=== PATIENT | female | born 1995 | race Caucasian/White ===

== ENCOUNTER → 2021-04-13 14:55 | Outpatient (BNVA) | payer MEDICAID, SELFPAY | PROVIDERS: Visit Provider Obstetrics & Gynecology | DX: Z36.87 Encounter for antenatal screening for uncertain dates (principal) | CPT/HCPCS: 76805 ==

== ENCOUNTER → 2023-08-25 10:21 | Outpatient (BNVA) | payer MEDICAID, SELFPAY | PROVIDERS: PCP Nurse Practitioner; Visit Provider Nurse Practitioner | DX: R10.9 Unspecified abdominal pain (principal) | CPT/HCPCS: 80053; 81000; 85025; 87086 ==

== ENCOUNTER 2023-08-28 06:36 | Outpatient (CLI) | payer MEDICAID, SELFPAY ==
--- NOTE | 2023-08-28 07:15 | US_ITS ---
WS: [id number] Exam: US abdomen complete* [id number] Date/Time of Exam: 08/28/2023 6:59 AM Reason For Exam: R10.9 - Unspecified abdominal pain No abdominal mass or ascites. The liver, gallbladder and spleen appear normal. The common bile duct i s not dilated and measures 2.1 mm in greatest diameter. The kidneys are of normal size, shape and loc ation. No solid or cystic renal mass. No renal obstruction. The RIGHT kidney measures 10.2 x 4.4 x 3. 0 cm. The LEFT kidney measures 9.77 x 3.5 x 4.08 cm. The spleen measures 9.74 cm in greatest dimensio n. The IVC shows phasic flow. The abdominal aorta is normal in caliber. The portal vein demonstrates hepatopetal flow. IMPRESSION: 1. Unremarkable abdominal sonogram.
== END 2023-08-28 06:37 | disposition home or self-care (01) ==
LOC: RAD 06:37
PROVIDERS: PCP Nurse Practitioner; Visit Provider Nurse Practitioner
DX: R10.9 Unspecified abdominal pain (principal)
CPT/HCPCS: 76700

== ENCOUNTER 2023-09-26 09:33 | Outpatient (CLI) | payer MEDICAID, SELFPAY ==
--- NOTE | 2023-09-26 10:00 | NM_ITS ---
WS: [id number] NUCLEAR MEDICINE HIDA SCAN WITH GALLBLADDER EJECTION FRACTION HISTORY: R10.9 - Unspecified abdominal pain COMPARISON: Abdomen ultrasound 08/28/2023 TECHNIQUE: The patient was intravenously injected with 7.3 mCi of TC99m Mebrofenin. Immediate imaging over the right upper quadrant was followed by 5 minute image and additional images for a total of 60 minutes. Normal uptake of radiotracer throughout the liver. Activity identified in the gallbladder at 15 minutes and well distended by 60 minutes. The gallbladde r is elongated and more midline as noted also on the prior ultrasound. Activity in the proximal small bowel was seen by 10 minutes. Good washout of the radiotracer from the liver by 60 minutes. The gallbladder emptied prior to the ejection fraction being obtained. Gallbladder was completely emp tying on additional imaging. Post fatty meal symptoms: None. IMPRESSION: 1. Normal HIDA scan. 2. No residual radiotracer in the gallbladder in order to perform an adequate ejection fraction.
== END 2023-09-26 09:34 | disposition home or self-care (01) ==
PROVIDERS: PCP Nurse Practitioner; Visit Provider Nurse Practitioner
DX: R10.9 Unspecified abdominal pain (principal); R11.10 Vomiting, unspecified; R19.7 Diarrhea, unspecified
CPT/HCPCS: 78227; A9537

== ENCOUNTER → 2024-04-23 10:09 | Outpatient (BNVA) | payer MEDICAID, SELFPAY | PROVIDERS: PCP Nurse Practitioner; Referring Provider Nurse Practitioner Family; Visit Provider Internal Medicine | DX: E07.9 Disorder of thyroid, unspecified (principal); Z98.51 Tubal ligation status; D35.2 Benign neoplasm of pituitary gland; E05.90 Thyrotoxicosis, unspecified without thyrotoxic crisis or storm | CPT/HCPCS: 36415; 82533; 83516; 84146; 84305; 84439; 84443; 84480; 86376; 86800 ==

== ENCOUNTER 2024-05-21 09:04 | Outpatient (CLI) | payer MEDICAID, SELFPAY ==
--- NOTE | 2024-05-21 09:30 | MR_ITS ---
WS: [id number] MRI HEAD WITHOUT AND WITH GADOLINIUM ENHANCEMENT WITH ATTENTION TO THE PITUITARY TECHNIQUE: Sagittal T1, T2 axial, T2 axial FLAIR, axial susceptibility weighted imaging, axial diffus ion weighted images, and coronal T2 images were obtained. Pre and post-T1 axial and post T1 coronal i mages. ADC and FSPGR images. Pituitary protocol utilized. IV malfunction during contrast administrati on. Dynamic pituitary protocol utilized. CLINICAL INFORMATION: pituitary adenoma COMPARISON: None. FINDINGS: No evidence of suprasellar mass. Normal optic chiasm and pituitary infundibulum. Subtle area of suspe cted hypoenhancement in the LEFT aspect of the pituitary suspicious for a tiny microadenoma measuring 3.7 mm best visualized on the dynamic imaging. Recommend correlation with pituitary function studies . No evidence of suprasellar lesion. Normal cavernous sinuses and Meckel's cave. No evidence of restricted diffusion to suggest acute isch emia. Ventricular system and basilar cisterns are patent. Normal posterior fossa. Normal vascular flow voids at the skull base. No extra-axial fluid collection s. No evidence of mass or mass effect. Paranasal sinuses and mastoid air cells are well aerated. Norm al posterior nasopharynx. No hemosiderin on the susceptibility weighted imaging. Temporal lobes and h ippocampal formations are normal in appearance. MR/MR pituitary wo/w con* [id number] IMPRESSION: Suspected 3.7 mm microadenoma in the LEFT aspect of the pituitary.
== END 2024-05-21 09:05 | disposition home or self-care (01) ==
LOC: RAD 09:05
PROVIDERS: PCP Nurse Practitioner Family; Visit Provider Internal Medicine
DX: D44.3 Neoplasm of uncertain behavior of pituitary gland (principal)
CPT/HCPCS: 70553

== ENCOUNTER 2024-06-18 07:42 | Outpatient (CLI) | payer MEDICAID, SELFPAY ==
[2024-06-18 08:31] LABS: Free T4 Free Thyroxine 1.25 ng/dL (0.82-1.77); Thyroid Stimulating Hormone 1.17 uIU/mL (0.27-4.20)
[2024-06-19 10:25] LABS: T3 Total 105 ng/dL (76-181)
== END 2024-06-18 07:43 | disposition home or self-care (01) ==
LOC: LAB 07:43
PROVIDERS: PCP Nurse Practitioner Family; Visit Provider Internal Medicine
DX: E07.9 Disorder of thyroid, unspecified (principal); Z98.51 Tubal ligation status; D35.2 Benign neoplasm of pituitary gland; E05.90 Thyrotoxicosis, unspecified without thyrotoxic crisis or storm
CPT/HCPCS: 36415; 84439; 84443; 84480